=== PATIENT | female | born 1950 | race Caucasian/White ===

== ENCOUNTER 2020-08-29 09:19 | Day surgery (SDC) | payer MEDICARE, MEDICAID, SELFPAY ==
[2020-08-29] MEDS: Tropicam./Phenyleph. (1/2.5%) 5 ML BTL OD ×3 (09:46→10:10)
[2020-08-29 10:01] VITALS: BP 135/79; PULSE 79; RESP 16; TEMP 36.1; O2SAT 100
[2020-08-29] MEDS: Tetracaine 0.5% 4 ML BTL OD (12:34)
[2020-08-29] MEDS: Balanced Salt Soln.-PLUS 500 ML BAG (12:35)
[2020-08-29] MEDS: Lidocaine 1% Pres-Free 5 ML VIAL (12:37)
[2020-08-29] MEDS: Lidocaine 2% Jelly 6 ML SYR (12:38)
[2020-08-29] MEDS: Povidone-Iodine Ophth 30 ML BTL (12:39)
--- NOTE | 2020-08-29 12:56 | W.PM.DSUDISC ---
Discharge Plan Disposition Patient Disposition: HOME Condition: Good Discharge Details Attending Provider: Maynor Richey Primary Care Provider: Willie Rueda Home Meds and New Rx's Prescriptions: No Action metformin 500 mg tablet 500 mg PO BID RF: 0 pravastatin 40 mg tablet 40 mg PO DAILY RF: 0 theophylline 400 mg tablet extended release 24 hr 200 mg PO BID RF: 0 lisinopril 20 mg tablet 20 mg PO DAILY RF: 0 alendronate 70 mg tablet 70 mg PO DIRECTED RF: 0 cyanocobalamin (vitamin B-12) 1,000 mcg tablet 1,000 mcg PO DAILY RF: 0 pramipexole 0.5 mg tablet 1.5 mg PO HS RF: 0 magnesium oxide 400 mg (241.3 mg magnesium) tablet 400 mg PO DAILY RF: 0 trazodone 100 mg tablet 100 mg PO DAILY RF: 0 insulin aspart U-100 [Novolog U-100 Insulin aspart] 100 unit/mL solution See Rx Instructions .ROUTE .COMPLEX RF: 0 trazodone 150 mg tablet 150 mg PO HS RF: 0 ferrous sulfate 325 mg (65 mg iron) Tablet 325 mg PO DAILY RF: 0 gabapentin 300 mg capsule 900 mg PO TID RF: 0 omeprazole 20 mg capsule,delayed release(DR/EC) 20 mg PO DAILY RF: 0 folic acid 1 mg tablet 1 mg PO DAILY RF: 0 metoprolol succinate 25 mg tablet extended release 24 hr 25 mg PO DAILY RF: 0 albuterol sulfate [Ventolin HFA] 90 mcg/actuation HFA aerosol inhaler 2 puff INHALATION Q4H PRNRF: 0 fluticasone propionate 50 mcg/actuation spray,suspension 1 spray INTRANASAL BID RF: 0 nicotine 7 mg/24 hr patch 24 hour 7 mg topical DAILY RF: 0 Salonpas Adhesive Patch,Medicated 1 patch TOPICAL DIRECTED RF: 0 escitalopram oxalate 20 mg tablet 20 mg PO DAILY RF: 0 Levemir FlexTouch U-100 Insuln 100 unit/mL (3 mL) insulin pen 10 unit SUBCUT DAILY RF: 0 levomefolate calcium 15 mg tablet 15 mg PO DAILY RF: 0 Incruse Ellipta 62.5 mcg/actuation blister with device 1 inh INHALATION DAILY RF: 0 Breo Ellipta 200-25 mcg/dose blister with device 1 inh INHALATION DAILY RF: 0 Trulicity 1.5 mg/0.5 mL pen injector 0.75 mg SUBCUT DIRECTED RF: 0 bupropion HCl 300 mg tablet extended release 24 hr 300 mg PO DAILY RF: 0 Discharge Instructions Stand Alone Forms: Post-op Topical Cataract, Leona Carlisle (DSU) Discharge Orders Discharge Orders: Discharge Order (Routine); Ordered 08/29/20 Ordered By: Maynor Richey DS: Diagnosis Discharge Diagnosis (1) Cortical cataract of right eye: Status: Resolved (2) Nuclear sclerotic cataract of right eye: Status: Resolved
--- NOTE | 2020-08-29 12:58 | W.PM.OP ---
Date of service: 08/29/20 Time of Service: 12:58 Operative Note Operative Note DATE OF PROCEDURE: 08/29/20 PRE-OP DIAGNOSIS: Nuclear/cortical cataract, right eye POST-OP DIAGNOSIS: same PROCEDURE: Cataract extraction using phacoemulsification with intraocular lens implant, right eye SURGEON: Maynor Richey ANESTHESIA: MAC and local (sub-tenon's anesthetic infiltration) ESTIMATED BLOOD LOSS: 0 PATHOLOGY: none sent COMPLICATIONS: None Patient was transported to: same day Patient's condition: stable Implants: [employer] / [employer] Tecnis ZCB00 intraocular lens Indications: Progressive decreased vision due to cataract, right eye Procedure Description: CATARACT SURGERY OPERATIVE REPORT PREOPERATIVE DIAGNOSIS: Nuclear/cortical cataract, right eye POSTOPERATIVE DIAGNOSIS: Same OPERATION: Cataract extraction using phacoemulsification with posterior chamber intraocular lens implant, right eye. IOL: IOL Licensed [place] [employer]/Model: [employer] / GRETCHEN Tecnis ZCB00 IOL Power: + 21.5 diopters IOL Serial Number: [id number] Optic Diameter: 6.0mm Haptic/Overall Diameter: 13.0mm PHACO INFO: Hugh Tiltapurion Vision System with OZil and Active [employer] Cumulative Dispersed Energy (CDE): 5.58 seconds SURGEON: Maynor Richey MD, PANKAJ ANESTHESIA: Monitored Anesthesia Care (MAC), with local sub-tenon's anesthetic infiltration COMPLICATIONS: None SPECIMENS: None INDICATIONS FOR PROCEDURE: The patient is a 70-year-old lady who was previously undergone cataract surgery in her left eye several years ago. She now presents with a symptomatic nuclear and cortical cataract in the right eye. The option of cataract surgery was offered to the patient and she wished to proceed. PROCEDURE: The correct surgical eye was identified and marked as the right eye and the pupil was dilated in the preoperative area using mydriatics and cycloplegics. The dilated pupil size was 5.5 mm. Oral sedation was administered in the form of an Imprimis MKO Melt (midazolam 3mg/ketamine 25mg/ondansetron 2mg). The patient was brought to the operating room where cardiopulmonary monitoring was instituted and surgical time-out was performed, confirming the correct operative eye and IOL power. Topical anesthesia was administered and ophthalmic povidone-iodine 5% was instilled into the conjunctival fornices. Lidocaine gel was applied to the cornea and the mehran-ocular area was prepped with Betadine 10% solution and draped in the usual sterile fashion for intraocular surgery, including an aperture drape. A Tegaderm transparent film dressing was cut in half and used to cover the lashes and lid margins. Care was taken to sequester the lashes and lid margins under the Tegaderm dressing. A lid speculum was placed between the lids of the operative eye and the Rolando-Randi operating microscope was maneuvered into position. Ambrocio scissors were then used to make a conjunctival buttonhole approximately 6mm posterior to the limbus in the inferonasal quadrant. Blunt dissection was carried out to expose bare sclera, and a blunt-tipped sub-tenon?s anesthesia cannula was introduced and passed posteriorly along the globe where non-preserved plain lidocaine was injected into posterior sub-Tenon?s space. A sideport knife was used to make a paracentesis port inferiortemporally. Intraocular phenylephrine/lidocaine was injected into the anterior chamber. The anterior chamber was then filled with viscoelastic. A 2.4mm keratome knife was used to create a half-thickness groove at the limbus and then to construct a three-plane near-clear corneal tunnel extending 2.0mm into clear cornea in the superiortemporal position. . A flap was raised on the anterior capsule and capsulorhexis forceps were used to complete a continuous curvilinear capsulorhexis of 5.0 mm. Capsulorhexis was challenging due to constant patient eye movement. . Balanced salt solution was then used to perform cortical cleaving hydrodissection and nuclear hydrodelineation until the lens could be freely rotated within the capsular bag. The lens nucleus was then disassembled and removed within the capsular bag and iris plane using phacoemulsification. Residual cortical material was removed using the I/A handpiece. The posterior capsule was carefully polished to remove as much residual lens epithelial cells as safely possible. The capsular bag was then inflated and the anterior chamber deepened with viscoelastic. The lens implant described above was inserted into the capsular bag using the GRETCHEN [place] Injector. A Kuglen hook was used to dial the IOL into position. Residual viscoelastic was then removed first from posterior to the IOL, then from the anterior chamber using the I/A handpiece. The lens implant was noted to center nicely within the capsular bag. The incisions were stromally hydrated, and the anterior chamber was reformed using BSS. Then 0.1cc of moxifloxacin 5.0mg/ml were injected into the capsular bag and anterior chamber. The incisions were checked with a Weck spear and found to be secure. Several drops of ophthalmic povidone-iodine 5% were then applied to the eye followed by two drops of Imprimis combination prednisolone/moxifloxacin/nepafenac solution. The drapes were removed and a clear plastic protective eye shield was placed over the eye. The patient was then returned to [facility] in stable condition.
[2020-08-29 13:19] VITALS: BP 120/69; PULSE 73; RESP 20; TEMP 36.2; O2SAT 97
== END 2020-08-29 13:20 | disposition home or self-care (01) ==
PROVIDERS: PCP Internal Medicine; Visit Provider Ophthalmology
PROC: (CPT 66984; principal; 2020-08-29 11:15)
DX: H25.011 Cortical age-related cataract, right eye (principal); H25.11 Age-related nuclear cataract, right eye; Z96.1 Presence of intraocular lens; Z98.42 Cataract extraction status, left eye; I10 Essential (primary) hypertension; E11.9 Type 2 diabetes mellitus without complications; Z79.4 Long term (current) use of insulin; J44.9 Chronic obstructive pulmonary disease, unspecified
CPT/HCPCS: 66984; V2632